=== PATIENT | female | born 1950 | race African-American/Black ===

== ENCOUNTER 2016-12-27 17:34 | Emergency (ER) | payer MEDICARE, MEDICAID ==
--- NOTE | 2016-12-27 18:57 | ER Document Report ---
ED General - General Chief Complaint: Wound Infection Stated Complaint: RIGHT LEG BED SORE Mode of Arrival: Medic Information source: Relative Cannot obtain history due to: Dementia Notes: 66-year-old female who is bedbound presents with daughter and EMS for concerns of bedsore. Symptoms have been ongoing for months, but family states that it is getting worse Denies any fevers or chills TRAVEL OUTSIDE OF THE [place] IN LAST 30 DAYS: No - HPI Onset: Other Onset/Duration: Persistent, Worse Quality of pain: Achy Severity: Moderate Pain Level: Denies Associated symptoms: Other Exacerbated by: Denies Relieved by: Denies Similar symptoms previously: Yes Recently seen / treated by doctor: Yes - Related Data Allergies/Adverse Reactions: codeine [Codeine] Allergy (Intermediate, Verified 09/21/16 16:47) rash, itch latex [Latex] Allergy (Intermediate, Verified 09/21/16 16:47) Hives Penicillins Allergy (Intermediate, Verified 09/21/16 16:47) rash, itch losartan potassium [From Cozaar] Allergy (Unknown, Verified 09/21/16 16:47) Unknown reaction Past Medical History - Social History Smoking Status: Never Smoker Cigarette use (# per day): No Chew tobacco use (# tins/day): No Smoking Education Provided: No Family History: Reviewed & Not Pertinent, Hypertension - Past Medical History Cardiac Medical History: Reports: Hx Congestive Heart Failure, Hx Coronary Artery Disease, Hx Hypertension - meds x 8 years, Hx Pulmonary Embolism Denies: Hx Atrial Fibrillation, Hx Heart Attack, Hx Hypercholesterolemia, Hx Peripheral Vascular Disease, Hx Heart Murmur Pulmonary Medical History: Reports: Hx Bronchitis - x 2/year, Hx Sleep Apnea - sleep study done, CPAP use x25 days only then quit using Denies: Hx Asthma, Hx COPD, Hx Pneumonia, Hx Respiratory Failure, Hx Tuberculosis Neurological Medical History: Reports: Hx Cerebrovascular Accident - 2011,RT sided weakness completely resolved. Denies: Hx Seizures Endocrine Medical History: Reports: Hx Diabetes Mellitus Type 1, Hx Diabetes Mellitus Type 2. Denies: Hx Graves' Disease, Hx Hyperthyroidism, Hx Hypothyroidism Renal/ Medical History: Denies: Hx End Stage Renal Disease, Hx Kidney Stones, Hx Ovarian Cysts, Hx Peritoneal Dialysis, Hx Pelvic Inflammatory Disease Malignancy Medical History: Reports: Hx Cervical Cancer - 1975. Denies: Hx Breast Cancer, Hx Leukemia, Hx Lung Cancer, Hx Ovarian Cancer GI Medical History: Denies: Hx Crohn's Disease, Hx Gastroesophageal Reflux Disease, Hx Hepatitis, Hx Hiatal Hernia, Hx Irritable Bowel, Hx Liver Failure, Hx Ulcer Musculoskeltal Medical History: Reports Hx Arthritis, Denies Hx Fibromyalgia, Denies Hx Multiple Sclerosis, Denies Hx Muscular Dystrophy Psychiatric Medical History: Reports: Hx Depression, Hx Schizophrenia Denies: Hx Bipolar Disorder, Hx Dementia, Hx Post Traumatic Stress Disorder Traumatic Medical History: Denies: Hx Fractures Infectious Medical History: Denies: Hx Hepatitis, Hx HIV Past Surgical History: Reports: Hx Section - 1975, Hx Hysterectomy, Hx Orthopedic Surgery, Hx Tonsillectomy - as young adult. Denies: Hx Appendectomy , Hx Bowel Surgery, Hx Cholecystectomy, Hx Colostomy, Hx Coronary Artery Bypass Graft, Hx Gastric Bypass Surgery, Hx Herniorrhaphy, Hx Mastectomy, Hx Open Heart Surgery, Hx Pacemaker, Hx Tubal Ligation - Immunizations Hx Diphtheria, Pertussis, Tetanus Vaccination: Yes Review of Systems - Review of Systems Notes: REVIEW OF SYSTEMS: CONSTITUTIONAL : Denies fever, chills, or sweats. Denies recent illness. EENT: Denies eye, ear, throat, or mouth pain or symptoms. Denies nasal or sinus congestion or discharge. Denies throat, tongue, or mouth swelling or difficulty swallowing. CARDIOVASCULAR: Denies chest pain. Denies palpitations or racing or irregular heart beat. Denies ankle edema. RESPIRATORY: Denies cough, cold, or chest congestion. Denies shortness of breath, difficulty breathing, or wheezing. GASTROINTESTINAL: Denies abdominal pain or distention. Denies nausea, vomiting , or diarrhea. Denies blood in vomitus, stools, or per rectum. Denies black, tarry stools. Denies constipation. GENITOURINARY: Denies difficulty urinating, painful urination, burning, frequency, blood in urine, or discharge. FEMALE GENITOURINARY: Denies vaginal bleeding, heavy or abnormal periods, irregular periods. Denies vaginal discharge or odor. MUSCULOSKELETAL: Denies back or neck pain or stiffness. Denies joint pain or swelling. SKIN: Ulcer HEMATOLOGIC : Denies easy bruising or bleeding. LYMPHATIC: Denies swollen, enlarged glands. NEUROLOGICAL: Denies confusion or altered mental status. Denies passing out or loss of consciousness. Denies dizziness or lightheadedness. Denies headache. Denies weakness or paralysis or loss of use of either side. Denies problems with gait or speech. Denies sensory loss, numbness, or tingling. Denies seizures. PSYCHIATRIC: Denies anxiety or stress. Denies depression, suicidal ideation, or homicidal ideation. ALL OTHER SYSTEMS REVIEWED AND NEGATIVE. Dictation was performed using [employer] voice recognition software PHYSICAL EXAMINATION: GENERAL: Thin frail appears older than stated age HEAD: Atraumatic, normocephalic. EYES: Pupils equal round and reactive to light, extraocular movements intact, conjunctiva are normal. ENT: Nares patent, oropharynx clear without exudates. Moist mucous membranes. NECK: Normal range of motion, supple without lymphadenopathy LUNGS: Breath sounds clear to auscultation bilaterally and equal. No wheezes rales or rhonchi. HEART: Regular rate and rhythm without murmurs ABDOMEN: Soft, nontender, nondistended abdomen. No guarding, no rebound. No masses appreciated. Female : deferred Musculoskeletal: Normal range of motion, no pitting or edema. No cyanosis. NEUROLOGICAL: Patient moving her extremities and follows commands SKIN: There is a 3 x 4 cm sacral decubitus ulcer stage III, there is no bony involvement noted is a foul smell to Physical Exam - Vital signs Vitals: Pulse Resp BP Pulse Ox 92 16 100/62 97 12/27/16 20:25 12/27/16 20:25 12/27/16 20:25 12/27/16 20:25 Course - Re-evaluation Re-evalutation: 12/27/16 23:07 I had dressing placed, however this appears to be a chronic issue and will require wound care, I will have the family follow-up with wound care clinic Abdomen shows to them to return immediately if there is any signs of fevers or see note any bony involvement After performing a Medical Screening Examination, I estimate there is LOW risk for OPEN FRACTURE, COMPARTMENT SYNDROME, TENDON RUPTURE, ACUTE NEUROVASCULAR INJURY, or RETAINED FOREIGN BODY, thus I consider the discharge disposition reasonable. Also, there is no evidence or peritonitis, sepsis, or toxicity. The patient and I have discussed the diagnosis and risks, and we agree with discharging home with close follow-up with the understanding that symptoms and presentations can change. We also discussed returning to the Emergency Department immediately if new or worsening symptoms occur. We have discussed the symptoms which are most concerning (e.g., changing or worsening pain, fever , numbness, weakness, cool or painful digits) that necessitate immediate return. - Vital Signs Vital signs: Temp Pulse Resp BP Pulse Ox 92 16 100/62 97 12/27/16 20:25 12/27/16 20:25 12/27/16 20:25 12/27/16 20:25 Discharge - Discharge Clinical Impression: Decubitus ulcer Qualifiers: Pressure ulcer location: sacral region Pressure ulcer stage: stage 3 Qualified Code(s): L89.153 - Pressure ulcer of sacral region, stage 3 Diabetes Qualifiers: Diabetes mellitus type: type 2 Diabetes mellitus complication status: with unspecified complications Diabetes mellitus terminal operations supervisor insulin use: unspecified terminal operations supervisor insulin use status Qualified Code(s): E11.8 - Type 2 diabetes mellitus with unspecified complications Condition: Stable Disposition: HOME, SELF-CARE Additional Instructions: Return immediately if there is any fevers altered mental status Referrals: Wound Care [Provider Group] - Follow up tomorrow
[2016-12-27 20:26] VITALS: BP 100/62
== END 2016-12-27 20:26 | disposition home or self-care (01) ==
LOC: ER 17:34
DX: L89.153 Pressure ulcer of sacral region, stage 3 (principal); E11.8 Type 2 diabetes mellitus with unspecified complications; I25.10 Atherosclerotic heart disease of native coronary artery without angina pectoris; I10 Essential (primary) hypertension; Z86.711 Personal history of pulmonary embolism; Z86.73 Personal history of transient ischemic attack (TIA), and cerebral infarction without residual deficits; Z85.41 Personal history of malignant neoplasm of cervix uteri; Z91.040 Latex allergy status; Z88.5 Allergy status to narcotic agent; Z88.0 Allergy status to penicillin; Z88.8 Allergy status to other drugs, medicaments and biological substances
CPT/HCPCS: 99283

== ENCOUNTER 2016-12-31 06:31 | Inpatient (IN) | payer MEDICARE, MEDICAID ==
[2016-12-31 09:11] LABS: APPEARANCE,URINE SLIGHTLY-CLOUDY; BILIRUBIN,URINE NEGATIVE (NEGATIVE); GLUCOSE, URINE NEGATIVE (NEGATIVE); KETONES,URINE NEGATIVE (NEGATIVE); LEUKOCYTE ESTERASE,URINE NEGATIVE (NEGATIVE); NITRITE,URINE NEGATIVE (NEGATIVE); PROTEIN,URINE 30 mg/dL (NEGATIVE); URINE SPECIFIC GRAVITY 1.018
[2016-12-31 09:50] LABS: HEMATOCRIT 27.6 % (36.0-47.0); HEMOGLOBIN 9.4 g/dL (12.0-15.5); HGB HCT DIFFERENCE 0.6; MEAN CORPUSCULAR HEMOGLOBIN 32.1 pg (27.0-33.4); MEAN CORPUSCULAR HGB CONC 34.1 g/dL (32.0-36.0); MEAN CORPUSCULAR VOLUME 94 fl (80-97); RED BLOOD COUNT 2.93 10^6/uL (3.72-5.28); RED CELL DISTRIBUTION WIDTH 15.9 % (11.5-14.0); WHITE BLOOD COUNT 21.8 10^3/uL (4.0-10.5)
--- NOTE | 2016-12-31 09:51 | ER Document Report ---
ED General - General Chief Complaint: Nausea/Vomiting Stated Complaint: VOMITING Mode of Arrival: Medic Information source: Relative - daughter Notes: Patient presents to the emergency department via EMS for nausea and vomiting. Daughter reports she started vomiting once yesterday and 3 times today. Patient was recently placed on Cipro and Keflex by her primary care provider and daughter thinks that is what is TRAVEL OUTSIDE OF THE [place] IN LAST 30 DAYS: No - HPI Onset: Yesterday Onset/Duration: Persistent Quality of pain: Achy Associated symptoms: Nausea, Vomiting Exacerbated by: Denies Relieved by: Denies Similar symptoms previously: Yes Recently seen / treated by doctor: Yes - Related Data Allergies/Adverse Reactions: codeine [Codeine] Allergy (Intermediate, Verified 09/21/16 16:47) rash, itch latex [Latex] Allergy (Intermediate, Verified 09/21/16 16:47) Hives Penicillins Allergy (Intermediate, Verified 09/21/16 16:47) rash, itch losartan potassium [From Cozaar] Allergy (Unknown, Verified 09/21/16 16:47) Unknown reaction Home Medications: Current Home Medications Benztropine Mesylate [Cogentin 1 mg Tablet] 1 mg PO TID 12/31/16 [History] Cephalexin [Cephalexin 500 MG Capsule] 500 mg PO BID 12/31/16 [History] Ciprofloxacin HCl [Cipro 500 mg Tablet] 500 mg PO BID 12/31/16 [History] Escitalopram Oxalate [Lexapro] 20 mg PO DAILY 12/31/16 [History] Folic Acid [Folvite 1 mg Tablet] 1 mg PO DAILY 12/31/16 [History] Metoprolol Tartrate [Lopressor 25 mg Tablet] 25 mg PO Q12 12/31/16 [History] Mirtazapine [Remeron 15 mg Tablet] 7.5 mg PO QHS 12/31/16 [History] Potassium Chloride [Klor-Con] 20 meq PO DAILY 12/31/16 [History] Sitagliptin Phosphate [Januvia] 100 mg PO DAILY 12/31/16 [History] Ziprasidone HCl [Geodon] 80 mg PO Q12 12/31/16 [History] Past Medical History - General Information source: Relative - daughter - Social History Smoking Status: Unknown if Ever Smoked Cigarette use (# per day): No Frequency of alcohol use: None Drug Abuse: None Lives with: Family Family History: Reviewed & Not Pertinent, Hypertension Patient has suicidal ideation: No Patient has homicidal ideation: No - Past Medical History Cardiac Medical History: Reports: Hx Congestive Heart Failure, Hx Coronary Artery Disease, Hx Hypertension - meds x 8 years, Hx Pulmonary Embolism Denies: Hx Atrial Fibrillation, Hx Heart Attack, Hx Hypercholesterolemia, Hx Peripheral Vascular Disease, Hx Heart Murmur Pulmonary Medical History: Reports: Hx Bronchitis - x 2/year, Hx Sleep Apnea - sleep study done, CPAP use x25 days only then quit using Denies: Hx Asthma, Hx COPD, Hx Pneumonia, Hx Respiratory Failure, Hx Tuberculosis Neurological Medical History: Reports: Hx Cerebrovascular Accident - 2010,RT sided weakness completely resolved. Denies: Hx Seizures Endocrine Medical History: Reports: Hx Diabetes Mellitus Type 1, Hx Diabetes Mellitus Type 2. Denies: Hx Graves' Disease, Hx Hyperthyroidism, Hx Hypothyroidism Renal/ Medical History: Denies: Hx End Stage Renal Disease, Hx Kidney Stones, Hx Ovarian Cysts, Hx Peritoneal Dialysis, Hx Pelvic Inflammatory Disease Malignancy Medical History: Reports: Hx Cervical Cancer - 1975. Denies: Hx Breast Cancer, Hx Leukemia, Hx Lung Cancer, Hx Ovarian Cancer GI Medical History: Denies: Hx Crohn's Disease, Hx Gastroesophageal Reflux Disease, Hx Hepatitis, Hx Hiatal Hernia, Hx Irritable Bowel, Hx Liver Failure, Hx Ulcer Musculoskeltal Medical History: Reports Hx Arthritis, Denies Hx Fibromyalgia, Denies Hx Multiple Sclerosis, Denies Hx Muscular Dystrophy Psychiatric Medical History: Reports: Hx Depression, Hx Schizophrenia Denies: Hx Bipolar Disorder, Hx Dementia, Hx Post Traumatic Stress Disorder Traumatic Medical History: Denies: Hx Fractures Infectious Medical History: Denies: Hx Hepatitis, Hx HIV Past Surgical History: Reports: Hx Section - 1975, Hx Hysterectomy, Hx Orthopedic Surgery, Hx Tonsillectomy - as young adult. Denies: Hx Appendectomy , Hx Bowel Surgery, Hx Cholecystectomy, Hx Colostomy, Hx Coronary Artery Bypass Graft, Hx Gastric Bypass Surgery, Hx Herniorrhaphy, Hx Mastectomy, Hx Open Heart Surgery, Hx Pacemaker, Hx Tubal Ligation - Immunizations Hx Diphtheria, Pertussis, Tetanus Vaccination: Yes Review of Systems - Review of Systems Notes: Review HPI for review of systems., All other systems negative Physical Exam - Vital signs Vitals: Temp Pulse Resp BP Pulse Ox 97.9 F 93 16 142/93 H 94 12/31/16 07:00 12/31/16 07:00 12/31/16 07:00 12/31/16 07:00 12/31/16 07:00 - Notes Notes: PHYSICAL EXAMINATION: GENERAL: pale HEAD: Atraumatic, normocephalic. EYES: Pupils equal round and reactive to light, extraocular movements intact, sclera anicteric, conjunctiva are normal. ENT: nares patent, Moist mucous membranes. NECK: Normal range of motion, without lymphadenopathy LUNGS: CTAB and equal. No wheezes rales or rhonchi. HEART: ST ABDOMEN: Soft, no tenderness. No guarding, no rebound EXTREMITIES: c/o soreness, achy with movement to any extremity, L AKA, NEUROLOGICAL: Cranial nerves grossly intact. Normal sensory/motor exams. PSYCH: Normal mood, normal affect. answers okay to all questions, c/o pain with movement. daughter reports as normal for patient SKIN: Warm, Dry, stage IV decubitus to sacral area with drainage foul odor, with stage III to bilateral buttocks Course - Re-evaluation Re-evalutation: 12/31/16 11:30 Patient actively vomiting now I have consulted the attending provider Dr Hernandez per [facility] guidelines. Upon elevated white count, Lactic acid 5. Source of infection I believe is decubitus which is now draining and has foul odor. Contacted Dr. Juares for admission. IV fluids and antibiotics ordered. Patient does not have an IV nurses are now working on that. Fluids, antibx ordered. Daughter instructed on admission. - Vital Signs Vital signs: Temp Pulse Resp BP Pulse Ox 97.9 F 72 14 116/73 93 12/31/16 07:00 12/31/16 14:15 12/31/16 14:15 12/31/16 12:55 12/31/16 09:10 - Laboratory Result Diagrams: 12/31/16 09:25 12/31/16 09:00 Laboratory results interpreted by me: 12/31/16 12/31/16 12/31/16 08:27 09:00 09:00 WBC RBC Hgb Hct RDW Seg Neuts % (Manual) Lymphocytes % (Manual) Monocytes % (Manual) Abs Neuts (Manual) PT 17.1 H Sodium 136.9 L Carbon Dioxide 21 L BUN 55 H Creatinine 2.45 H Est GFR ( Amer) 24 L Est GFR (Non-Af Amer) 20 L Glucose 165 H Lactic Acid Total Bilirubin 1.7 H Alkaline Phosphatase 181 H Total Protein 5.9 L Albumin 2.1 L Urine Protein 30 H Urine Blood SMALL H Urine Urobilinogen 2.0 H 12/31/16 12/31/16 09:25 09:25 WBC 21.8 H RBC 2.93 L Hgb 9.4 L Hct 27.6 L RDW 15.9 H Seg Neuts % (Manual) 89 H Lymphocytes % (Manual) 5 L Monocytes % (Manual) 2 L Abs Neuts (Manual) 20.3 H PT Sodium Carbon Dioxide BUN Creatinine Est GFR ( Amer) Est GFR (Non-Af Amer) Glucose Lactic Acid 5.0 H Total Bilirubin Alkaline Phosphatase Total Protein Albumin Urine Protein Urine Blood Urine Urobilinogen Discharge - Discharge Clinical Impression: Acute kidney injury Nausea & vomiting Qualifiers: Vomiting type: unspecified Vomiting Intractability: unspecified Qualified Code( s): R11.2 - Nausea with vomiting, unspecified Sepsis Qualifiers: Sepsis type: sepsis due to unspecified organism Qualified Code(s): A41.9 - Sepsis, unspecified organism Decubitus ulcer Qualifiers: Pressure ulcer location: sacral region Pressure ulcer stage: stage 4 Qualified Code(s): L89.154 - Pressure ulcer of sacral region, stage 4 Condition: Serious Disposition: ADMITTED INPATIENT Admitting Provider: Juares Unit Admitted: Telemetry
[2016-12-31 10:05] LABS: PROTHROMBIN TIME 17.1 SEC (11.4-15.4)
[2016-12-31 10:12] LABS: ALANINE AMINOTRANSFERASE 36 U/L (9-52); ALBUMIN 2.1 g/dL (3.5-5.0); ALKALINE PHOSPHATASE 181 U/L (38-126); ANION GAP 16 (5-19); ASPARTATE AMINO TRANSFERASE 23 U/L (14-36); BILIRUBIN,TOTAL 1.7 mg/dL (0.2-1.3); BLOOD UREA NITROGEN 55 mg/dL (7-20); CALCIUM 8.7 mg/dL (8.4-10.2); CARBON DIOXIDE 21 mmol/L (22-30); CHLORIDE 100 mmol/L (98-107); CREATININE RESULT 2.45 mg/dL (0.52-1.25); GLUCOSE 165 mg/dL (75-110); POTASSIUM 4.2 mmol/L (3.6-5.0); SODIUM 136.9 mmol/L (137-145); TOTAL PROTEIN 5.9 g/dL (6.3-8.2)
[2016-12-31 10:36] LABS: BAND NEUTROPHILS % (MANUAL) 4 % (3-5); BASOPHILS % (MANUAL) 0 % (0-2); EOSINOPHILS % (MANUAL) 0 % (0-6); LYMPHOCYTES % (MANUAL) 5 % (13-45); TOTAL CELLS COUNTED 100
[2016-12-31 10:37] LABS: ANISOCYTOSIS SLIGHT; TOXIC GRANULATION SLIGHT; TOXIC VACUOLATION PRESENT
--- NOTE | 2016-12-31 11:26 | EKG REPORT ---
SEVERITY:- ABNORMAL ECG - SINUS TACHYCARDIA PAIRED VENTRICULAR PREMATURE COMPLEXES BORDERLINE RIGHT AXIS DEVIATION BORDERLINE R WAVE PROGRESSION, ANTERIOR LEADS : Confirmed by: Karley Perez 31-Dec-2016 11:25:56
[2016-12-31] MEDS ORDERED: NORMAL SALINE 1000 ML 1,000 ML IV ONE (11:32)
[2016-12-31] MEDS ORDERED: CEFTRIAXONE RTU 1 GM/D5W 50 ML IV ONE (11:35)
[2016-12-31] MEDS ORDERED: ONDANSETRON HCL INJ/PF 4 MG/2 ML SDV IV ONE (11:45)
[2016-12-31] MEDS ORDERED: ACETAMINOPHEN 325 MG TABLET PO PRN (11:47)
[2016-12-31] MEDS ORDERED: ONDANSETRON HCL INJ/PF 4 MG/2 ML SDV IV PRN (11:47)
[2016-12-31] MEDS ORDERED: VANCOMYCIN HCL INJ 1000 MG VIAL IV ONE (11:51)
[2016-12-31] MEDS ORDERED: METRONIDAZOLE 500 MG/NS RTU 100 ML IV ONE ×2 (11:51→13:00)
[2016-12-31] MEDS ORDERED: DEXTROSE 50%-WATER 25 GM/50 ML DISP.SYRIN IV PRN ×2 (11:53)
[2016-12-31] MEDS ORDERED: DEXTROSE 40% GEL 15 GM TUBE PO PRN ×2 (11:53)
[2016-12-31] MEDS ORDERED: INSULIN LISPRO 100 UNIT/ML 3 ML VIAL SUBCUT PRN (11:53)
[2016-12-31] MEDS ORDERED: CEFEPIME 1 GM/D5W RTU 50 ML IV SCH (12:00)
[2016-12-31] MEDS ORDERED: ENOXAPARIN SODIUM INJ 30 MG/0.3 ML DISP.SYRIN SUBCUT ONE (13:00)
--- NOTE | 2016-12-31 14:00 | PDOC H&P ---
History of Present Illness Admission Date/PCP: 12/31/16 12:30 BERNABE MORENO MD History of Present Illness: MAKEDA LÓPEZ is a 66 year old female Patient's came to the ER today with the complaint with nausea vomiting since last 24 hour per daughter and patient had a stage IV ulcer and patient is not feeling well since last couple of days. In the emergency department the patient was found septic the white count was 21, 000 and patient was given IV antibiotic admitting in the hospital for further evaluation and treatment. Past Medical History Cardiac Medical History: Reports: Congestive Heart Failure, Coronary Artery Disease, Hypertension - meds x 8 years, Pulmonary Embolism Denies: Atrial Fibrillation, Myocardial Infarction, Hyperlipidema, Peripheral Vascular Disease, Heart Murmur Pulmonary Medical History: Reports: Bronchitis - x 2/year, Sleep Apnea - sleep study done, CPAP use x25 days only then quit using Denies: Asthma, Chronic Obstructive Pulmonary Disease (COPD), Pneumonia, Respiratory Failure, Tuberculosis Pulmonary History Note: Pulmonary embolus Neurological Medical History: Denies: Seizures Endocrine Medical History: Reports: Diabetes Mellitus Type 1, Diabetes Mellitus Type 2 Denies: Hyperthyroidism, Hypothyroidism Renal/ Medical History: Denies: End Stage Renal Disease Malignancy Medical History: Reports: Cervical Cancer - 1975 Denies: Breast Cancer, Leukemia, Lung Cancer, Ovarian Cancer GI Medical History: Denies: Crohn's Disease, Gastroesophageal Reflux Disease, Hepatitis, Hiatal Hernia Musculoskeltal Medical History: Reports: Arthritis Denies: Fibromyalgia Psychiatric Medical History: Reports: Depression Denies: Bipolar Disorder, Dementia, Post Traumatic Stress Disorder Hematology: Reports: Anemia - with blood transfusion, 1975, pre-[facility]IRA Denies: Hemophilia, Sickle Cell Disease Infectious Medical History: Denies: HIV Past Surgical History Past Surgical History: Reports: Section - 1975, Hysterectomy, Orthopedic Surgery, Tonsillectomy - as young adult Denies: Amputation, Appendectomy, Cholecystectomy, Colostomy, Coronary Artery Bypass Graft, Gastric Bypass Surgery, Herniorrhaphy, Mastectomy, Pacemaker, Tubal Ligation Social History Lives with: Family Smoking Status: Unknown if Ever Smoked Frequency of Alcohol Use: None Hx Recreational Drug Use: No Drugs: None Hx Prescription Drug Abuse: No Family History Family History: Reviewed & Not Pertinent, Hypertension Parental Family History Reviewed: Yes Children Family History Reviewed: Yes Sibling(s) Family History Reviewed.: Yes Medication/Allergy Allergies/Adverse Reactions: codeine [Codeine] Allergy (Intermediate, Verified 09/21/16 16:47) rash, itch latex [Latex] Allergy (Intermediate, Verified 09/21/16 16:47) Hives Penicillins Allergy (Intermediate, Verified 09/21/16 16:47) rash, itch losartan potassium [From Cozaar] Allergy (Unknown, Verified 09/21/16 16:47) Unknown reaction Review of Systems Constitutional: PRESENT: anorexia, fatigue, weight loss Cardiovascular: ABSENT: as per HPI, chest pain, dyspnea on exertion, edema, orthropnea, palpitations, other Respiratory: ABSENT: as per HPI, cough, dyspnea, hemoptysis, sputum, other Gastrointestinal: PRESENT: nausea, vomiting Genitourinary: ABSENT: as per HPI, difficulty urinating, dysuria, hematuria, nocturia, other Neurological: PRESENT: weakness Psychiatric: PRESENT: anxiety Physical Exam Vital Signs: Temp Pulse Resp BP Pulse Ox 97.9 F 110 H 22 H 116/73 93 12/31/16 07:00 12/31/16 12:55 12/31/16 12:55 12/31/16 12:55 12/31/16 09:10 General appearance: PRESENT: no acute distress, thin, other Head exam: PRESENT: normocephalic Eye exam: PRESENT: PERRLA Mouth exam: PRESENT: neck supple Respiratory exam: PRESENT: clear to auscultation italo Cardiovascular exam: PRESENT: +S1, +S2 GI/Abdominal exam: PRESENT: normal bowel sounds, soft. ABSENT: tenderness Extremities exam: PRESENT: right AKA. ABSENT: pedal edema Musculoskeletal exam: PRESENT: deformity Neurological exam: PRESENT: alert, awake Psychiatric exam: PRESENT: anxious Results Impressions: Abdomen/Pelvis CT 12/31/16 11:58 IMPRESSION: 1. Persistent fluid collection in the right retroperitoneum this is been described previously as hematoma is not significantly changed since prior study. 2. Large sacral decubitus ulcer as described. Assessment & Plan - Diagnosis (1) Nausea & vomiting Qualifiers: Vomiting type: unspecified Vomiting Intractability: unspecified Qualified Code(s): R11.2 - Nausea with vomiting, unspecified Is this a current diagnosis for this admission?: YesPlan: Most likely from the p.o. antibiotic will start the patient on IV Zofran and IV fluid and ordered a CT scan of the abdomen and pelvis without contrast (2) Sepsis Qualifiers: Sepsis type: sepsis due to unspecified organism Qualified Code(s): A41.9 - Sepsis, unspecified organism Is this a current diagnosis for this admission?: YesPlan: Start IV antibioticWait for all blood cultures urine culture and also check the stool for the C. difficile significant history of C. difficile in the past (3) Failure to thrive Qualifiers: Failure to thrive age range: in adult Qualified Code(s): R62.7 - Adult failure to thrive Is this a current diagnosis for this admission?: YesPlan: From chronic illness (4) Anemia Qualifiers: Anemia type: unspecified type Qualified Code(s): D64.9 - Anemia, unspecified Is this a current diagnosis for this admission?: YesPlan: From chronic disease (5) Decubitus ulcer Qualifiers: Pressure ulcer location: sacral region Pressure ulcer stage: stage 4 Qualified Code(s): L89.154 - Pressure ulcer of sacral region, stage 4 Is this a current diagnosis for this admission?: YesPlan: Chronic from chronic debridement condition and failure to thrive with consult to general surgery for further evaluation (6) Dehydration Plan: Start IV fluid (7) Diabetes Qualifiers: Diabetes mellitus type: type 2 Diabetes mellitus complication status: with unspecified complications Diabetes mellitus buttermaker continuous churn insulin use: unspecified buttermaker continuous churn insulin use status Qualified Code(s): E11.8 - Type 2 diabetes mellitus with unspecified complications; Z79.4 - jail (current) use of insulin Is this a current diagnosis for this admission?: YesPlan: Continues to OMS sliding scale (8) Acute renal failure Qualifiers: Acute renal failure type: unspecified Qualified Code(s): N17.9 - Acute kidney failure, unspecified Is this a current diagnosis for this admission?: YesPlan: From the dehydration and a possible sepsis start IV fluid - Time Time Spent: 30 to 50 Minutes Medications reviewed and adjusted accordingly: Yes Anticipated discharge: Other - Inpatient Certification Medical Necessity: Failure to Improve With Outpatient Therapy, Need For IV Fluids, Need for IV Antibiotics Post Hospital Care: D/C Consulting Psychologist Documentation - Plan Summary Plan Summary: Since condition is overall very poor and prognosis is very poor to discuss with her daughter on the bedside and patient is currently is a no code the patient's continues to be input probably needs to go to the nursing care facility
[2016-12-31] MEDS: IPRATROPIUM/ALBUTEROL 0.5-2.5 MG/3 ML AMPUL NEB SCH ×2 (14:15→19:06)
[2016-12-31] MEDS: NORMAL SALINE 1000 ML 1,000 ML IV PRN (14:37)
[2016-12-31] MEDS ORDERED: CEFEPIME 1 GM/D5W RTU 1 GM/50 ML RTUPB IV ONE ×2 (15:00)
[2016-12-31] MEDS: METRONIDAZOLE 500 MG/NS RTU 100 ML IV SCH (18:56)
[2016-12-31] MEDS: CEFEPIME 1 GM/D5W RTU 50 ML IV SCH (21:44)
[2016-12-31] MEDS: PANTOPRAZOLE SODIUM 40 MG VIAL IV SCH (21:44)
[2017-01-01] MEDS: METRONIDAZOLE 500 MG/NS RTU 100 ML IV SCH ×4 (01:28→17:10)
[2017-01-01 06:51] LABS: ABSOLUTE LYMPHOCYTES (AUTO) 1.3 10^3/uL (0.5-4.7); ABSOLUTE MONOCYTES (AUTO) 0.9 10^3/uL (0.1-1.4); ABSOLUTE NEUT (AUTO) 14.9 10^3/uL (1.7-8.2); BASOPHILS % (AUTO) 0.1 % (0-2); HEMATOCRIT 22.1 % (36.0-47.0); HGB HCT DIFFERENCE 0.7; LYMPHOCYTES % (AUTO) 7.4 % (13-45); MEAN CORPUSCULAR HEMOGLOBIN 32.3 pg (27.0-33.4); MEAN CORPUSCULAR HGB CONC 34.4 g/dL (32.0-36.0); MEAN CORPUSCULAR VOLUME 94 fl (80-97); MONOCYTES % (AUTO) 5.4 % (3-13); RED BLOOD COUNT 2.35 10^6/uL (3.72-5.28); RED CELL DISTRIBUTION WIDTH 15.4 % (11.5-14.0); SEGMENTED NEUTROPHILS % (AUTO) 87.1 % (42-78); WHITE BLOOD COUNT 17.1 10^3/uL (4.0-10.5)
[2017-01-01 06:54] LABS: HEMOGLOBIN 7.6 g/dL (12.0-15.5)
[2017-01-01 06:55] LABS: ALANINE AMINOTRANSFERASE 40 U/L (9-52); ALBUMIN 1.7 g/dL (3.5-5.0); ALKALINE PHOSPHATASE 140 U/L (38-126); ANION GAP 14 (5-19); ASPARTATE AMINO TRANSFERASE 23 U/L (14-36); BILIRUBIN,TOTAL 1.3 mg/dL (0.2-1.3); BLOOD UREA NITROGEN 60 mg/dL (7-20); CARBON DIOXIDE 17 mmol/L (22-30); CHLORIDE 108 mmol/L (98-107); CREATININE RESULT 2.76 mg/dL (0.52-1.25); GLUCOSE 81 mg/dL (75-110); POTASSIUM 4.2 mmol/L (3.6-5.0); SODIUM 139.4 mmol/L (137-145)
[2017-01-01] MEDS: IPRATROPIUM/ALBUTEROL 0.5-2.5 MG/3 ML AMPUL NEB SCH ×3 (08:02→20:11)
[2017-01-01] MEDS ORDERED: NORMAL SALINE 250 ML IV PRN ×2 (08:06)
--- NOTE | 2017-01-01 09:08 | PDOC CONSULTATION ---
Consultation Consult Date: 01/01/17 Attending physician:: FREDDY GAUTAM Consult reason:: Nausea and vomiting History of Present Illness Admission Date/PCP: 12/31/16 11:47 BERNABE MORENO MD History of Present Illness: Patient is admitted by Dr. Moreno. She was recently given some antibiotics. She is been treated for C. difficile. Following treatment should develop some nausea and vomiting. Stool studies are pending. She's been having nausea and vomiting ever since starting antibiotics. She does appear to have chronic anemia but no active bleeding. I spoke to Dr. Moreno. I suspect her symptoms are probably due to antibiotics. The plan at this point would be to see whether we can stop the antibiotics and see how she does. She does not need to have acute upper endoscopy done at this point in time. Her hemoglobin is stable. She is really not able to verbalize any other complaints. She is getting a breathing treatment as we speak. There is some mild shortness of breath. There does not appear to be any complaints of melena. She received IV antibiotics due to the sacral decubital ulcer. She might possibly have C. difficile. She also has been rehydrated due to dehydration. Past Medical History Cardiac Medical History: Reports: Congestive Heart Failure, Coronary Artery Disease, Hypertension - meds x 8 years, Pulmonary Embolism Denies: Atrial Fibrillation, Myocardial Infarction, Hyperlipidema, Peripheral Vascular Disease, Heart Murmur Pulmonary Medical History: Reports: Bronchitis - x 2/year, Sleep Apnea - sleep study done, CPAP use x25 days only then quit using Denies: Asthma, Chronic Obstructive Pulmonary Disease (COPD), Pneumonia, Respiratory Failure, Tuberculosis Neurological Medical History: Denies: Seizures Endocrine Medical History: Reports: Diabetes Mellitus Type 1, Diabetes Mellitus Type 2 Denies: Hyperthyroidism, Hypothyroidism Renal/ Medical History: Denies: End Stage Renal Disease Malignancy Medical History: Reports: Cervical Cancer - 1975 Denies: Breast Cancer, Leukemia, Lung Cancer, Ovarian Cancer GI Medical History: Denies: Crohn's Disease, Gastroesophageal Reflux Disease, Hepatitis, Hiatal Hernia Musculoskeltal Medical History: Reports: Arthritis Denies: Fibromyalgia Psychiatric Medical History: Reports: Depression Denies: Bipolar Disorder, Dementia, Post Traumatic Stress Disorder Hematology: Reports: Anemia - with blood transfusion, 1975, pre-[place] Denies: Hemophilia, Sickle Cell Disease Infectious Medical History: Denies: HIV Past Surgical History Past Surgical History: Reports: Section - 1975, Hysterectomy, Orthopedic Surgery, Tonsillectomy - as young adult Denies: Amputation, Appendectomy, Cholecystectomy, Colostomy, Coronary Artery Bypass Graft, Gastric Bypass Surgery, Herniorrhaphy, Mastectomy, Pacemaker, Tubal Ligation Social History Lives with: Family Smoking Status: Never Smoker Frequency of Alcohol Use: None Hx Recreational Drug Use: No Drugs: None Hx Prescription Drug Abuse: No Family History Family History: Reviewed & Not Pertinent, Hypertension Parental Family History Reviewed: Yes Children Family History Reviewed: Unknown Sibling(s) Family History Reviewed.: Unknown Medication/Allergy Home Medications: Benztropine Mesylate [Cogentin 1 mg Tablet] 1 mg PO TID 12/31/16 Cephalexin [Cephalexin 500 MG Capsule] 500 mg PO BID 12/31/16 Ciprofloxacin HCl [Cipro 500 mg Tablet] 500 mg PO BID 12/31/16 Escitalopram Oxalate [Lexapro] 20 mg PO DAILY 12/31/16 Folic Acid [Folvite 1 mg Tablet] 1 mg PO DAILY 12/31/16 Metoprolol Tartrate [Lopressor 25 mg Tablet] 25 mg PO Q12 12/31/16 Mirtazapine [Remeron 15 mg Tablet] 7.5 mg PO QHS 12/31/16 Potassium Chloride [Klor-Con] 20 meq PO DAILY 12/31/16 Sitagliptin Phosphate [Januvia] 100 mg PO DAILY 12/31/16 Ziprasidone HCl [Geodon] 80 mg PO Q12 12/31/16 Allergies/Adverse Reactions: codeine [Codeine] Allergy (Intermediate, Verified 09/21/16 16:47) rash, itch latex [Latex] Allergy (Intermediate, Verified 09/21/16 16:47) Hives Penicillins Allergy (Intermediate, Verified 09/21/16 16:47) rash, itch losartan potassium [From Cozaar] Allergy (Unknown, Verified 09/21/16 16:47) Unknown reaction Review of Systems Constitutional: PRESENT: weakness. ABSENT: fever(s), headache(s), night sweats Eyes: ABSENT: visual disturbances Ears: ABSENT: hearing changes Nose, Mouth, and Throat: ABSENT: mouth pain Cardiovascular: PRESENT: dyspnea on exertion. ABSENT: palpitations Respiratory: PRESENT: dyspnea. ABSENT: hemoptysis Gastrointestinal: PRESENT: nausea, vomiting. ABSENT: coffee ground emesis, diarrhea, hematemesis, melena Genitourinary: ABSENT: dysuria, hematuria Neurological: ABSENT: focal weakness, paresthesias, syncope, tremor(s), vertigo Endocrine: ABSENT: polydipsia, polyphagia, polyuria Hematologic/Lymphatic: ABSENT: easy bruising Physical Exam Vital Signs: Temp Pulse Resp BP Pulse Ox 98.0 F 73 16 84/39 L 92 01/01/17 07:28 01/01/17 08:00 01/01/17 08:00 01/01/17 07:28 01/01/17 08:00 Intake & Output 12/31/16 01/01/17 01/02/17 06:59 06:59 06:59 Intake Total 600 Output Total 600 Balance 0 Weight 48.2 kg General appearance: PRESENT: cooperative Head exam: PRESENT: atraumatic, normocephalic Eye exam: PRESENT: EOMI, PERRLA. ABSENT: nystagmus, periorbital swelling, scleral icterus Throat exam: ABSENT: tonsillar exudate Neck exam: ABSENT: meningismus, tenderness, thyromegaly Respiratory exam: PRESENT: decreased breath sounds, symmetrical, tachypnea. ABSENT: chest wall tenderness, wheezes Cardiovascular exam: PRESENT: RRR, +S1, +S2. ABSENT: rubs GI/Abdominal exam: PRESENT: normal bowel sounds, soft. ABSENT: distended, rebound, rigid, tenderness Extremities exam: ABSENT: joint swelling Neurological exam: PRESENT: alert, awake, oriented to person, oriented to place , CN II-XII grossly intact Psychiatric exam: PRESENT: appropriate affect Skin exam: PRESENT: normal color. ABSENT: mottled, pallor, petechiae, urticaria , vesicles Results Laboratory Results: 01/01/17 06:10 01/01/17 06:10 12/31/16 01/01/17 01/01/17 14:51 06:10 06:10 WBC 17.1 H RBC 2.35 L Hgb 7.6 L Hct 22.1 L MCV 94 MCH 32.3 MCHC 34.4 RDW 15.4 H Plt Count 172 Seg Neutrophils % 87.1 H Lymphocytes % 7.4 L Monocytes % 5.4 Eosinophils % 0.0 Basophils % 0.1 Absolute Neutrophils 14.9 H Absolute Lymphocytes 1.3 Absolute Monocytes 0.9 Absolute Eosinophils 0.0 Absolute Basophils 0.0 Sodium 139.4 Potassium 4.2 Chloride 108 H Carbon Dioxide 17 L Anion Gap 14 BUN 60 H Creatinine 2.76 H Est GFR ( Amer) 21 L Est GFR (Non-Af Amer) 17 L Glucose 81 Lactic Acid 5.3 H Calcium 8.0 L Total Bilirubin 1.3 AST 23 ALT 40 Alkaline Phosphatase 140 H Total Protein 5.0 L Albumin 1.7 L Impressions: Abdomen/Pelvis CT 12/31/16 11:58 IMPRESSION: 1. Persistent fluid collection in the right retroperitoneum this is been described previously as hematoma is not significantly changed since prior study. 2. Large sacral decubitus ulcer as described. Assessment & Plan - Diagnosis (1) Nausea & vomiting Qualifiers: Vomiting type: unspecified Vomiting Intractability: unspecified Qualified Code(s): R11.2 - Nausea with vomiting, unspecified Is this a current diagnosis for this admission?: YesPlan: Could be due to antibiotic use. We'll get results back and discontinue any antibiotics that are unnecessary then go ahead and see how she does if her nausea and vomiting does get worse she may need to have upper endoscopy. Also if there is any bleeding she'll need upper endoscopy. In the meanwhile start PPI and antiemetics. The case was discussed with Dr. Moreno. (2) Acute blood loss anemia Plan: Chronic anemia. Does not appear to be due to extreme blood loss. Multifactorial reasons. Some of her anemia might be due to her renal insufficiency. We'll follow Perhaps upper endoscopy early next week if nausea vomiting does not resolve and/ or if any bleeding Continue to watch H&H Transfuse as necessary (3) Failure to thrive Qualifiers: Failure to thrive age range: in adult Qualified Code(s): R62.7 - Adult failure to thrive Is this a current diagnosis for this admission?: YesPlan: This is a chronic issue we'll continue to follow. (4) Dehydration Plan: Patient is getting rehydrated this should improve her nausea and vomiting. - Time Time Spent: 50 to 70 Minutes
[2017-01-01] MEDS: ENOXAPARIN SODIUM INJ 30 MG/0.3 ML DISP.SYRIN SUBCUT SCH (09:13)
[2017-01-01] MEDS: CEFEPIME 1 GM/D5W RTU 50 ML IV SCH ×2 (09:13→22:59)
[2017-01-01] MEDS: PANTOPRAZOLE SODIUM 40 MG VIAL IV SCH ×2 (09:13→22:59)
--- NOTE | 2017-01-01 09:55 | PDOC PROGRESS REPORT ---
Subjective Progress Note for:: 01/01/17 Subjective:: Patient is doing fair patients denied any chest pain no shortness of the breath and no abdominal pain. C. difficile is positive. Since seen by Dr. Gagnon and discussed with the family also. Patient's hemoglobin was running low is likely from dilutional effect and a chronic disease. No sign of any acute blood loss. No fever overnight patient's white count is also improvingPatient is a no code as per discussed with the daughter who has a power of insurance defense attorney Physical Exam Vital Signs: Temp Pulse Resp BP Pulse Ox 98.0 F 73 16 84/39 L 92 01/01/17 07:28 01/01/17 08:00 01/01/17 08:00 01/01/17 07:28 01/01/17 08:00 Intake & Output 12/31/16 01/01/17 01/02/17 06:59 06:59 06:59 Intake Total 600 Output Total 600 Balance 0 Weight 48.2 kg General appearance: PRESENT: no acute distress Head exam: PRESENT: normocephalic Eye exam: PRESENT: PERRLA Mouth exam: PRESENT: neck supple Respiratory exam: PRESENT: clear to auscultation italo Cardiovascular exam: PRESENT: +S1, +S2 GI/Abdominal exam: PRESENT: normal bowel sounds, soft. ABSENT: tenderness Extremities exam: ABSENT: pedal edema Additional comments: Stage IV decubitus ulcers with some draining Neurological exam: PRESENT: alert, awake Psychiatric exam: PRESENT: anxious Results Laboratory Results: 01/01/17 06:10 01/01/17 06:10 12/31/16 01/01/17 01/01/17 14:51 06:10 06:10 WBC 17.1 H RBC 2.35 L Hgb 7.6 L Hct 22.1 L MCV 94 MCH 32.3 MCHC 34.4 RDW 15.4 H Plt Count 172 Seg Neutrophils % 87.1 H Lymphocytes % 7.4 L Monocytes % 5.4 Eosinophils % 0.0 Basophils % 0.1 Absolute Neutrophils 14.9 H Absolute Lymphocytes 1.3 Absolute Monocytes 0.9 Absolute Eosinophils 0.0 Absolute Basophils 0.0 Sodium 139.4 Potassium 4.2 Chloride 108 H Carbon Dioxide 17 L Anion Gap 14 BUN 60 H Creatinine 2.76 H Est GFR ( Amer) 21 L Est GFR (Non-Af Amer) 17 L Glucose 81 Lactic Acid 5.3 H Calcium 8.0 L Total Bilirubin 1.3 AST 23 ALT 40 Alkaline Phosphatase 140 H Total Protein 5.0 L Albumin 1.7 L Blood Type Antibody Screen 01/01/17 08:46 WBC RBC Hgb Hct MCV MCH MCHC RDW Plt Count Seg Neutrophils % Lymphocytes % Monocytes % Eosinophils % Basophils % Absolute Neutrophils Absolute Lymphocytes Absolute Monocytes Absolute Eosinophils Absolute Basophils Sodium Potassium Chloride Carbon Dioxide Anion Gap BUN Creatinine Est GFR ( Amer) Est GFR (Non-Af Amer) Glucose Lactic Acid Calcium Total Bilirubin AST ALT Alkaline Phosphatase Total Protein Albumin Blood Type Cancelled Antibody Screen Cancelled Impressions: Abdomen/Pelvis CT 12/31/16 11:58 IMPRESSION: 1. Persistent fluid collection in the right retroperitoneum this is been described previously as hematoma is not significantly changed since prior study. 2. Large sacral decubitus ulcer as described. Assessment & Plan - Diagnosis (1) Nausea & vomiting Qualifiers: Vomiting type: unspecified Vomiting Intractability: unspecified Qualified Code(s): R11.2 - Nausea with vomiting, unspecified Is this a current diagnosis for this admission?: YesPlan: Is also improving most likely a from the medication (2) Sepsis Qualifiers: Sepsis type: sepsis due to unspecified organism Qualified Code(s): A41.9 - Sepsis, unspecified organism Is this a current diagnosis for this admission?: YesPlan: From possible wound infections with the C. difficile will wait for the all cultures continues to IV cefepime and IV Flagyl once all cultures negative may be a consider stop the IV cefepime due to the C. difficile (3) Failure to thrive Qualifiers: Failure to thrive age range: in adult Qualified Code(s): R62.7 - Adult failure to thrive Is this a current diagnosis for this admission?: YesPlan: From chronic illness (4) Anemia Qualifiers: Anemia type: unspecified type Qualified Code(s): D64.9 - Anemia, unspecified Is this a current diagnosis for this admission?: YesPlan: Transfusion of 1 unit of the blood in the setting of C. difficile and chronic blood blood loss and chronic disease (5) Decubitus ulcer Qualifiers: Pressure ulcer location: sacral region Pressure ulcer stage: stage 4 Qualified Code(s): L89.154 - Pressure ulcer of sacral region, stage 4 Is this a current diagnosis for this admission?: YesPlan: Continues to dressing change and follow-up with the general surgery (6) Dehydration Plan: Continuous IV fluid (7) Diabetes Qualifiers: Diabetes mellitus type: type 2 Diabetes mellitus complication status: with unspecified complications Diabetes mellitus terminal operator insulin use: unspecified terminal operator insulin use status Qualified Code(s): E11.8 - Type 2 diabetes mellitus with unspecified complications; Z79.4 - FDC (current) use of insulin Is this a current diagnosis for this admission?: YesPlan: Continues to OMS sliding scale (8) Acute renal failure Qualifiers: Acute renal failure type: unspecified Qualified Code(s): N17.9 - Acute kidney failure, unspecified Is this a current diagnosis for this admission?: YesPlan: From the dehydration and possible sepsis may be underlying GI bleed continues to IV fluid patient's discussed with the Dr. Gagnon and continues to monitor at this point before doing any procedures - Time Time Spent with patient: 15-24 minutes Medications reviewed and adjusted accordingly: Yes Anticipated discharge: Other - Inpatient Certification Medical Necessity: Failure to Improve With Outpatient Therapy, Need For IV Fluids, Need for IV Antibiotics Post Hospital Care: D/C Tubing Machine Operator Documentation - Patient is getting better I think continues the patient's or IV fluid and IV antibiotics once all cultures come back negative may be a DC the cefepime and continues IV Flagyl. Patient's still have a very poor prognosis patient is currently on a no code
[2017-01-01] MEDS ORDERED: FUROSEMIDE INJ/PF 20 MG/2 ML SDV IV ONE (15:30)
[2017-01-01 16:21] LABS: HEMOGLOBIN 9.1 g/dL (12.0-15.5); HGB HCT DIFFERENCE 0.3; MEAN CORPUSCULAR HGB CONC 33.6 g/dL (32.0-36.0); MEAN CORPUSCULAR VOLUME 92 fl (80-97); RED BLOOD COUNT 2.93 10^6/uL (3.72-5.28); WHITE BLOOD COUNT 19.6 10^3/uL (4.0-10.5)
[2017-01-01] MEDS: NORMAL SALINE 1000 ML 1,000 ML IV PRN (23:00)
--- NOTE | 2017-01-02 00:25 | PDOC CONSULTATION ---
History of Present Illness Admission Date/PCP: 12/31/16 11:47 BERNABE MORENO MD History of Present Illness: Late entry. Patient was seen on the morning of 01/01/2017. Lacy Chávez is a frail appearing debilitated 66-year-old female. She has advanced dementia and is unable to provide any history. The history is from the medical record. The patient was admitted with nausea vomiting a stage IV ulcer and general worsening of her condition. At some point she was treated with antibiotics and had diarrhea since then. Her C. difficile test is positive. She is now being treated with IV Flagyl. The patient has a sacral decubitus ulcer. Surgery is consulted for that reason. Past Medical History Cardiac Medical History: Reports: Congestive Heart Failure, Coronary Artery Disease, Hypertension - meds x 8 years, Pulmonary Embolism Pulmonary Medical History: Reports: Bronchitis - x 2/year, Sleep Apnea - sleep study done, CPAP use x25 days only then quit using Endocrine Medical History: Reports: Diabetes Mellitus Type 2 Renal/ Medical History: Denies: End Stage Renal Disease Malignancy Medical History: Reports: Cervical Cancer - 1975 Musculoskeltal Medical History: Reports: Arthritis Psychiatric Medical History: Reports: Depression Hematology: Reports: Anemia - with blood transfusion, 1975, pre-[place] Infectious Medical History: Reports: Clostridium Difficile Past Surgical History Past Surgical History: Reports: Section - 1975, Hysterectomy, Orthopedic Surgery, Tonsillectomy - as young adult Social History Information Source: [facility] Records Lives with: Family Smoking Status: Never Smoker Frequency of Alcohol Use: None Hx Recreational Drug Use: No Drugs: None Hx Prescription Drug Abuse: No Family History Family History: Hypertension Parental Family History Reviewed: No Children Family History Reviewed: No Sibling(s) Family History Reviewed.: No Medication/Allergy Home Medications: Benztropine Mesylate [Cogentin 1 mg Tablet] 1 mg PO TID 12/31/16 Cephalexin [Cephalexin 500 MG Capsule] 500 mg PO BID 12/31/16 Ciprofloxacin HCl [Cipro 500 mg Tablet] 500 mg PO BID 12/31/16 Escitalopram Oxalate [Lexapro] 20 mg PO DAILY 12/31/16 Folic Acid [Folvite 1 mg Tablet] 1 mg PO DAILY 12/31/16 Metoprolol Tartrate [Lopressor 25 mg Tablet] 25 mg PO Q12 12/31/16 Mirtazapine [Remeron 15 mg Tablet] 7.5 mg PO QHS 12/31/16 Potassium Chloride [Klor-Con] 20 meq PO DAILY 12/31/16 Sitagliptin Phosphate [Januvia] 100 mg PO DAILY 12/31/16 Ziprasidone HCl [Geodon] 80 mg PO Q12 12/31/16 Allergies/Adverse Reactions: codeine [Codeine] Allergy (Intermediate, Verified 09/21/16 16:47) rash, itch latex [Latex] Allergy (Intermediate, Verified 09/21/16 16:47) Hives Penicillins Allergy (Intermediate, Verified 09/21/16 16:47) rash, itch losartan potassium [From Cozaar] Allergy (Unknown, Verified 09/21/16 16:47) Unknown reaction Review of Systems ROS unobtainable: Due to mental status Physical Exam Vital Signs: Temp Pulse Resp BP Pulse Ox 97.6 F 98 14 99/59 L 100 01/01/17 20:09 01/01/17 20:10 01/01/17 20:10 01/01/17 20:09 01/01/17 20:09 Intake & Output 12/31/16 01/01/17 01/02/17 06:59 06:59 06:59 Intake Total 600 2337 Output Total 600 75 Balance 0 2262 Weight 48.2 kg General appearance: PRESENT: disheveled, thin, other - Frail-appearing Eye exam: PRESENT: other - Her eyes do track with whomever speaking to her. Mouth exam: PRESENT: tongue midline Teeth exam: PRESENT: poor dentation Respiratory exam: PRESENT: other - She does seem to cooperate and be able to provide one deep breath but then does not cooperate after that. Respiratory effort is poor but they are clear bilaterally Cardiovascular exam: PRESENT: RRR - Difficult to auscultate, seems regular GI/Abdominal exam: PRESENT: soft, other - Excess skinfolds suggesting weight loss. ABSENT: tenderness Rectal exam: PRESENT: other - The patient has small amount of stool in her diaper. Just proximal this she has an extensive stage IV sacral decubitus ulcer with a central open area as well as undermining. The undermined tissue has a rim of necrotic tissue as well as additional viable tissue. The patient is rather stiff and difficult to maintain in position for proper exam. Extremities exam: ABSENT: tenderness Neurological exam: PRESENT: awake, aphasic. ABSENT: oriented to person, oriented to place, oriented to time, oriented to situation Skin exam: ABSENT: jaundice Results Laboratory Results: 01/01/17 16:02 01/01/17 06:10 01/01/17 01/01/17 01/01/17 06:10 06:10 08:46 WBC 17.1 H RBC 2.35 L Hgb 7.6 L Hct 22.1 L MCV 94 MCH 32.3 MCHC 34.4 RDW 15.4 H Plt Count 172 Seg Neutrophils % 87.1 H Lymphocytes % 7.4 L Monocytes % 5.4 Eosinophils % 0.0 Basophils % 0.1 Absolute Neutrophils 14.9 H Absolute Lymphocytes 1.3 Absolute Monocytes 0.9 Absolute Eosinophils 0.0 Absolute Basophils 0.0 Sodium 139.4 Potassium 4.2 Chloride 108 H Carbon Dioxide 17 L Anion Gap 14 BUN 60 H Creatinine 2.76 H Est GFR ( Amer) 21 L Est GFR (Non-Af Amer) 17 L Glucose 81 Calcium 8.0 L Total Bilirubin 1.3 AST 23 ALT 40 Alkaline Phosphatase 140 H Total Protein 5.0 L Albumin 1.7 L Blood Type Cancelled Antibody Screen Cancelled 01/01/17 01/01/17 09:42 16:02 WBC 19.6 H RBC 2.93 L Hgb 9.1 L Hct 27.0 L MCV 92 MCH 31.0 MCHC 33.6 RDW 16.0 H Plt Count 135 L Seg Neutrophils % Lymphocytes % Monocytes % Eosinophils % Basophils % Absolute Neutrophils Absolute Lymphocytes Absolute Monocytes Absolute Eosinophils Absolute Basophils Sodium Potassium Chloride Carbon Dioxide Anion Gap BUN Creatinine Est GFR ( Amer) Est GFR (Non-Af Amer) Glucose Calcium Total Bilirubin AST ALT Alkaline Phosphatase Total Protein Albumin Blood Type A POSITIVE Antibody Screen NEGATIVE Impressions: Abdomen/Pelvis CT 12/31/16 11:58 IMPRESSION: 1. Persistent fluid collection in the right retroperitoneum this is been described previously as hematoma is not significantly changed since prior study. 2. Large sacral decubitus ulcer as described. Assessment & Plan - Diagnosis (1) Sacral decubitus ulcer, stage IV Is this a current diagnosis for this admission?: YesPlan: Extensive stage IV sacral decubitus ulcer in a debilitated demented patient who is very frail appearing. Poor prognosis for healing. Recommend Offloading. Recommend specialty mattress. This wound could be debrided and cleansed at bedside, but the patient's dementia and rigidity when attempting exam or make this virtually impossible. Not sure if she is a surgical candidate considering she will probably need sedation and possibly intubation for proper debridement. I would like to talk to the family about goals. Asked the nurse to call me within the family returns to the floor. (2) Failure to thrive Qualifiers: Failure to thrive age range: in adult Qualified Code(s): R62.7 - Adult failure to thrive Is this a current diagnosis for this admission?: Yes (3) Altered mental status Qualifiers: Altered mental status type: disorientation Qualified Code(s): R41.0 - Disorientation, unspecified Is this a current diagnosis for this admission?: YesPlan: Per medicine. (4) Clostridium difficile colitis Is this a current diagnosis for this admission?: YesPlan: Per medicine. On Flagyl.
[2017-01-02] MEDS: METRONIDAZOLE 500 MG/NS RTU 100 ML IV SCH ×4 (00:38→21:01)
[2017-01-02] MEDS: GLUCAGON,HUMAN RECOMB 1 MG INJ IM PRN ×3 (07:07→15:01)
[2017-01-02] MEDS: IPRATROPIUM/ALBUTEROL 0.5-2.5 MG/3 ML AMPUL NEB SCH ×3 (08:01→19:48)
[2017-01-02 08:18] LABS: ABSOLUTE LYMPHOCYTES (AUTO) 1.5 10^3/uL (0.5-4.7); ABSOLUTE MONOCYTES (AUTO) 0.5 10^3/uL (0.1-1.4); BASOPHILS % (AUTO) 0.3 % (0-2); HEMOGLOBIN 9.2 g/dL (12.0-15.5); HGB HCT DIFFERENCE 0.6; LYMPHOCYTES % (AUTO) 10.2 % (13-45); MEAN CORPUSCULAR HEMOGLOBIN 31.4 pg (27.0-33.4); MEAN CORPUSCULAR VOLUME 92 fl (80-97); MONOCYTES % (AUTO) 3.1 % (3-13); RED BLOOD COUNT 2.93 10^6/uL (3.72-5.28); RED CELL DISTRIBUTION WIDTH 17.1 % (11.5-14.0); SEGMENTED NEUTROPHILS % (AUTO) 86.4 % (42-78)
[2017-01-02 08:21] LABS: ANION GAP 13 (5-19); BLOOD UREA NITROGEN 66 mg/dL (7-20); CALCIUM 8.2 mg/dL (8.4-10.2); CARBON DIOXIDE 16 mmol/L (22-30); CHLORIDE 115 mmol/L (98-107); CREATININE RESULT 2.74 mg/dL (0.52-1.25); GLUCOSE 76 mg/dL (75-110)
[2017-01-02] MEDS ORDERED: DEXTROSE 5%-NORMAL SALINE 1,000 ML IV PRN (09:45)
--- NOTE | 2017-01-02 16:55 | PDOC PROGRESS REPORT ---
Subjective Progress Note for:: 01/02/17 Subjective:: Patient is debilitated, family wants patient to be comfort care measures. She was admitted because of sepsis, history taking is a challenge, she has stage IV decubiti ulcer in the sacrum Physical Exam Vital Signs: Temp Pulse Resp BP Pulse Ox 97.8 F 64 18 148/122 H 74 L 01/02/17 12:09 01/02/17 14:10 01/02/17 14:10 01/02/17 12:09 01/02/17 12:09 Intake & Output 01/01/17 01/02/17 01/03/17 06:59 06:59 06:59 Intake Total 600 3437 Output Total 600 225 Balance 0 3212 Weight 48.2 kg 49.2 kg General appearance: PRESENT: mild distress Cardiovascular exam: PRESENT: +S1, +S2 Results Laboratory Results: 01/02/17 07:57 01/02/17 07:57 01/02/17 01/02/17 01/02/17 07:57 07:57 07:57 WBC 15.0 H RBC 2.93 L Hgb 9.2 L Hct 27.0 L MCV 92 MCH 31.4 MCHC 34.0 RDW 17.1 H Plt Count 135 L Seg Neutrophils % 86.4 H Lymphocytes % 10.2 L Monocytes % 3.1 Eosinophils % 0.0 Basophils % 0.3 Absolute Neutrophils 13.0 H Absolute Lymphocytes 1.5 Absolute Monocytes 0.5 Absolute Eosinophils 0.0 Absolute Basophils 0.0 Sodium 144.0 Potassium 4.0 Chloride 115 H Carbon Dioxide 16 L Anion Gap 13 BUN 66 H Creatinine 2.74 H Est GFR ( Amer) 21 L Est GFR (Non-Af Amer) 17 L Glucose 76 Lactic Acid 2.0 Calcium 8.2 L 12/31/16 12:46 Sacrum - Decubitis Ulcer Gram Stain - Final Impressions: Abdomen/Pelvis CT 12/31/16 11:58 IMPRESSION: 1. Persistent fluid collection in the right retroperitoneum this is been described previously as hematoma is not significantly changed since prior study. 2. Large sacral decubitus ulcer as described. Assessment & Plan - Diagnosis (1) Sepsis Qualifiers: Sepsis type: sepsis due to unspecified organism Qualified Code(s): A41.9 - Sepsis, unspecified organism Is this a current diagnosis for this admission?: YesPlan: The care will be transition to comfort care measures (2) Acute kidney injury Is this a current diagnosis for this admission?: Yes (3) Acute renal failure Qualifiers: Acute renal failure type: unspecified Qualified Code(s): N17.9 - Acute kidney failure, unspecified Is this a current diagnosis for this admission?: Yes (4) Decubitus ulcer Qualifiers: Pressure ulcer location: sacral region Pressure ulcer stage: stage 4 Qualified Code(s): L89.154 - Pressure ulcer of sacral region, stage 4 Is this a current diagnosis for this admission?: Yes (5) Nausea & vomiting Qualifiers: Vomiting type: unspecified Vomiting Intractability: unspecified Qualified Code(s): R11.2 - Nausea with vomiting, unspecified Is this a current diagnosis for this admission?: Yes (6) Sacral decubitus ulcer, stage IV Is this a current diagnosis for this admission?: Yes
[2017-01-02] MEDS: CEFEPIME 1 GM/D5W RTU 50 ML IV SCH ×2 (17:56→22:21)
[2017-01-02] MEDS: ENOXAPARIN SODIUM INJ 30 MG/0.3 ML DISP.SYRIN SUBCUT SCH (17:56)
[2017-01-02] MEDS: PANTOPRAZOLE SODIUM 40 MG VIAL IV SCH ×2 (17:56→22:21)
--- NOTE | 2017-01-02 21:13 | PDOC PROGRESS REPORT ---
Subjective Progress Note for:: 01/02/17 Subjective:: Subjective: Was consulted for stage IV decubitus ulcer and central venous access. Patient had lost IV and been stuck multiple times in unsuccessful efforts to gain access. Objective: The patient remains demented, aphasic, cachectic, debilitated and in discomfort and distress when any examination, assessment or intervention is attempted. I tried to place an external jugular vein IV as well multiple times and was unsuccessful, with significant distress and discomfort to the patient, with her seemingly completely unable to understand why. Assessment/plan: I then went to speak to the family about consents for debridement of ulcer as well as central line placement. I believe her to be a poor surgical candidate and recommended the debridement take place at the bedside. I expressed that I would try to limit this to frankly necrotic tissue , but estimate that it will cause the patient's significant distress, based on my attempts to examine her sacrum yesterday as well as my attempts to place an IV today. Additionally, the family warned me that the patient would need to be in restraints to prevent her removing her central line, which she did in August. The patient is debilitated, demented, cachectic and has been deteriorating consistently for 18 months with no reversal insight. I spoke with her daughter, her brother and several other family members at 2 separate times for a total of 100 minutes. The patient told her brother in August I'm tired and ready to . The daughter (and medical power of business attorney) reports telling her mother on multiple occasions, it's okay to let go. The daughter predicts continued demise and suffering of her mother and passing away in less than 2 months even if aggressive care were to be continued. I discussed options with the family including continued aggressive care with invasive procedures, continued care short of invasive procedures, and comfort cares. I also offered that we could accommodate any level of care day specified, but encouraged them to consider the goals of therapy and the wishes of and potential discomfort/suffering of Lacy. The daughter (and caregiver/medical power of business attorney), in consensus with all other family members present, wish the patient to be made "comfort cares only." I spoke with Dr. Womack to facilitate this. Surgery will sign off. Physical Exam Vital Signs: Temp Pulse Resp BP Pulse Ox 97.8 F 98 16 148/122 H 74 L 01/02/17 12:09 01/02/17 19:54 01/02/17 19:54 01/02/17 12:09 01/02/17 12:09 Intake & Output 01/01/17 01/02/17 01/03/17 06:59 06:59 06:59 Intake Total 600 3437 120 Output Total 600 225 100 Balance 0 3212 20 Weight 48.2 kg 49.2 kg Results Laboratory Results: 01/02/17 07:57 01/02/17 07:57 01/02/17 01/02/17 01/02/17 07:57 07:57 07:57 WBC 15.0 H RBC 2.93 L Hgb 9.2 L Hct 27.0 L MCV 92 MCH 31.4 MCHC 34.0 RDW 17.1 H Plt Count 135 L Seg Neutrophils % 86.4 H Lymphocytes % 10.2 L Monocytes % 3.1 Eosinophils % 0.0 Basophils % 0.3 Absolute Neutrophils 13.0 H Absolute Lymphocytes 1.5 Absolute Monocytes 0.5 Absolute Eosinophils 0.0 Absolute Basophils 0.0 Sodium 144.0 Potassium 4.0 Chloride 115 H Carbon Dioxide 16 L Anion Gap 13 BUN 66 H Creatinine 2.74 H Est GFR ( Amer) 21 L Est GFR (Non-Af Amer) 17 L Glucose 76 Lactic Acid 2.0 Calcium 8.2 L 12/31/16 12:46 Sacrum - Decubitis Ulcer Gram Stain - Final Impressions: Abdomen/Pelvis CT 12/31/16 11:58 IMPRESSION: 1. Persistent fluid collection in the right retroperitoneum this is been described previously as hematoma is not significantly changed since prior study. 2. Large sacral decubitus ulcer as described. Assessment & Plan - Diagnosis (1) Sacral decubitus ulcer, stage IV Is this a current diagnosis for this admission?: Yes (2) Failure to thrive Qualifiers: Failure to thrive age range: in adult Qualified Code(s): R62.7 - Adult failure to thrive Is this a current diagnosis for this admission?: Yes (3) Altered mental status Qualifiers: Altered mental status type: disorientation Qualified Code(s): R41.0 - Disorientation, unspecified Is this a current diagnosis for this admission?: Yes (4) Clostridium difficile colitis Is this a current diagnosis for this admission?: Yes
[2017-01-03] MEDS: METRONIDAZOLE 500 MG/NS RTU 100 ML IV SCH ×2 (01:16→05:39)
[2017-01-03 04:26] LABS: ABSOLUTE LYMPHOCYTES (AUTO) 1.5 10^3/uL (0.5-4.7); ABSOLUTE MONOCYTES (AUTO) 0.6 10^3/uL (0.1-1.4); ABSOLUTE NEUT (AUTO) 16.4 10^3/uL (1.7-8.2); BASOPHILS % (AUTO) 0.1 % (0-2); HEMATOCRIT 26.6 % (36.0-47.0); HEMOGLOBIN 9.1 g/dL (12.0-15.5); HGB HCT DIFFERENCE 0.7; LYMPHOCYTES % (AUTO) 8.1 % (13-45); MEAN CORPUSCULAR HEMOGLOBIN 31.3 pg (27.0-33.4); MEAN CORPUSCULAR HGB CONC 34.2 g/dL (32.0-36.0); MEAN CORPUSCULAR VOLUME 91 fl (80-97); MONOCYTES % (AUTO) 3.3 % (3-13); RED BLOOD COUNT 2.92 10^6/uL (3.72-5.28); RED CELL DISTRIBUTION WIDTH 17.2 % (11.5-14.0); SEGMENTED NEUTROPHILS % (AUTO) 88.5 % (42-78); WHITE BLOOD COUNT 18.5 10^3/uL (4.0-10.5)
[2017-01-03 04:42] LABS: ANION GAP 12 (5-19); BLOOD UREA NITROGEN 69 mg/dL (7-20); CALCIUM 8.1 mg/dL (8.4-10.2); CARBON DIOXIDE 18 mmol/L (22-30); CHLORIDE 116 mmol/L (98-107); CREATININE RESULT 2.65 mg/dL (0.52-1.25); GLUCOSE 48 mg/dL (75-110); POTASSIUM 3.4 mmol/L (3.6-5.0); SODIUM 145.9 mmol/L (137-145)
[2017-01-03] MEDS: IPRATROPIUM/ALBUTEROL 0.5-2.5 MG/3 ML AMPUL NEB SCH (09:15)
[2017-01-03] MEDS: MORPHINE SULFATE 10 MG/ML INJ INJ PRN (13:01)
--- NOTE | 2017-01-03 16:07 | PDOC PROGRESS REPORT ---
Subjective Progress Note for:: 01/03/17 Subjective:: Patient has been transitioned to comfort care measures. On antibiotics for sacral decubital ulcer as well as C.Diff. however having nausea and vomiting. not able to take oral medications. surgery has also seen patient patient does have advanced dementia Physical Exam Vital Signs: Temp Pulse Resp BP Pulse Ox 97.8 F 100 18 148/122 H 98 01/02/17 12:09 01/03/17 09:15 01/03/17 09:15 01/02/17 12:09 01/03/17 09:15 Intake & Output 01/02/17 01/03/17 01/04/17 06:59 06:59 06:59 Intake Total 3437 120 Output Total 225 250 Balance 3212 -130 Weight 49.2 kg 49.442 kg General appearance: PRESENT: mild distress, thin Head exam: PRESENT: atraumatic Eye exam: ABSENT: nystagmus, periorbital swelling Neck exam: ABSENT: thyromegaly, tracheal deviation Respiratory exam: PRESENT: crackles Cardiovascular exam: PRESENT: RRR, +S1, +S2 GI/Abdominal exam: PRESENT: diminished bowel sounds. ABSENT: Hodges's sign, rebound, rigid Extremities exam: ABSENT: clubbing Neurological exam: PRESENT: altered Skin exam: ABSENT: mottled, pallor, petechiae, rash Results Laboratory Results: 01/03/17 03:39 01/03/17 03:39 01/03/17 01/03/17 03:39 03:39 WBC 18.5 H RBC 2.92 L Hgb 9.1 L Hct 26.6 L MCV 91 MCH 31.3 MCHC 34.2 RDW 17.2 H Plt Count 108 L Seg Neutrophils % 88.5 H Lymphocytes % 8.1 L Monocytes % 3.3 Eosinophils % 0.0 Basophils % 0.1 Absolute Neutrophils 16.4 H Absolute Lymphocytes 1.5 Absolute Monocytes 0.6 Absolute Eosinophils 0.0 Absolute Basophils 0.0 Sodium 145.9 H Potassium 3.4 L Chloride 116 H Carbon Dioxide 18 L Anion Gap 12 BUN 69 H Creatinine 2.65 H Est GFR ( Amer) 22 L Est GFR (Non-Af Amer) 18 L Glucose 48 L Calcium 8.1 L 12/31/16 12:46 Sacrum - Decubitis Ulcer Gram Stain - Final Impressions: Abdomen/Pelvis CT 12/31/16 11:58 IMPRESSION: 1. Persistent fluid collection in the right retroperitoneum this is been described previously as hematoma is not significantly changed since prior study. 2. Large sacral decubitus ulcer as described. Assessment & Plan - Diagnosis (1) Nausea & vomiting Qualifiers: Vomiting type: unspecified Vomiting Intractability: unspecified Qualified Code(s): R11.2 - Nausea with vomiting, unspecified Is this a current diagnosis for this admission?: YesPlan: likely due to antibiotic use does not require any urgent EGD also now non aggressive , comfort care measures (2) Acute blood loss anemia Plan: multifactorial , no immediate bleeding noted (3) Failure to thrive Qualifiers: Failure to thrive age range: in adult Qualified Code(s): R62.7 - Adult failure to thrive Is this a current diagnosis for this admission?: YesPlan: poor overall nutrition and anorexia (5) Colitis due to Clostridium difficile Plan: likely contributing to sepsis and overall poor condition also has issues with sacral decubital ulcer and surgery will have a problem with addressing the issue if more aggressive care is desired, then OG tube with po flagyl likely will be more efficacious however with current status, that would be an invasive procedure and likely will not be well tolerated.
--- NOTE | 2017-01-03 17:10 | PDOC PROGRESS REPORT ---
Subjective Progress Note for:: 01/03/17 Subjective:: Patient with advanced dementia. Her care was transition to comfort care measures, yesterday aacording to family wishes Physical Exam Vital Signs: Temp Pulse Resp BP Pulse Ox 97.8 F 100 18 148/122 H 98 01/02/17 12:09 01/03/17 09:15 01/03/17 09:15 01/02/17 12:09 01/03/17 09:15 Intake & Output 01/02/17 01/03/17 01/04/17 06:59 06:59 06:59 Intake Total 3437 120 Output Total 225 250 Balance 3212 -130 Weight 49.2 kg 49.442 kg Results Laboratory Results: 01/03/17 03:39 01/03/17 03:39 01/03/17 01/03/17 03:39 03:39 WBC 18.5 H RBC 2.92 L Hgb 9.1 L Hct 26.6 L MCV 91 MCH 31.3 MCHC 34.2 RDW 17.2 H Plt Count 108 L Seg Neutrophils % 88.5 H Lymphocytes % 8.1 L Monocytes % 3.3 Eosinophils % 0.0 Basophils % 0.1 Absolute Neutrophils 16.4 H Absolute Lymphocytes 1.5 Absolute Monocytes 0.6 Absolute Eosinophils 0.0 Absolute Basophils 0.0 Sodium 145.9 H Potassium 3.4 L Chloride 116 H Carbon Dioxide 18 L Anion Gap 12 BUN 69 H Creatinine 2.65 H Est GFR ( Amer) 22 L Est GFR (Non-Af Amer) 18 L Glucose 48 L Calcium 8.1 L 12/31/16 12:46 Sacrum - Decubitis Ulcer Gram Stain - Final Impressions: Abdomen/Pelvis CT 12/31/16 11:58 IMPRESSION: 1. Persistent fluid collection in the right retroperitoneum this is been described previously as hematoma is not significantly changed since prior study. 2. Large sacral decubitus ulcer as described. Assessment & Plan - Diagnosis (1) Sepsis Qualifiers: Sepsis type: sepsis due to unspecified organism Qualified Code(s): A41.9 - Sepsis, unspecified organism Is this a current diagnosis for this admission?: Yes (2) Acute kidney injury Is this a current diagnosis for this admission?: Yes (3) Acute renal failure Qualifiers: Acute renal failure type: unspecified Qualified Code(s): N17.9 - Acute kidney failure, unspecified Is this a current diagnosis for this admission?: Yes (4) Decubitus ulcer Qualifiers: Pressure ulcer location: sacral region Pressure ulcer stage: stage 4 Qualified Code(s): L89.154 - Pressure ulcer of sacral region, stage 4 Is this a current diagnosis for this admission?: Yes (5) Nausea & vomiting Qualifiers: Vomiting type: unspecified Vomiting Intractability: unspecified Qualified Code(s): R11.2 - Nausea with vomiting, unspecified Is this a current diagnosis for this admission?: Yes (6) Sacral decubitus ulcer, stage IV Is this a current diagnosis for this admission?: Yes
[2017-01-04] MEDS: MORPHINE SULFATE 10 MG/ML INJ INJ PRN ×2 (10:00→15:49)
--- NOTE | 2017-01-04 19:23 | PROGRESS NOTE E ---
Progress Note NAME: MAKEDA LÓPEZ : 1950 AGE: 66Y DATE: 01/04/2017 ROOM: 527 SUBJECTIVE: Patient is doing fair. Patient was made comfort care per the daughter who is the [id number]. OBJECTIVE: GENERAL: Patient is currently lying in the bed, very cachectic, alert, awake, in no acute distress. VITAL SIGNS: Stable. HEAD AND NECK: Normocephalic. PERRLA. LUNGS: No wheezing, no rales. HEART: S1, S2 are present. ABDOMEN: Soft. Bowel sounds present. EXTREMITIES: No edema. ASSESSMENT AND PLAN: 1. *------*. 2. SEPSIS. 3. STAGE IV DECUBITUS ULCER. 4. DEMENTIA. 5. HYPERTENSION. 6. C. DIFFICILE COLITIS. PLAN: At this point, very extensive discussion with the daughter regarding the patient's clinical condition with the patient progressively getting more worse since last Wednesday, and now patient has a significant stage IV ulcer. Patient unable to move, worsening dementia symptoms and worsening failure to thrive. The daughter decided to put the patient on comfort care. We will consult hospice. Agree about that and hospice consulted at this point. DICTATING PHYSICIAN: BERNABE MORENO M.D. [id number] MARLONY#: [id number] ID: [id number] JOB#: [id number] ACCT: [id number] cc: >
--- NOTE | 2017-01-05 08:20 | PDOC DISCHARGE SUMMARY ---
General - Admit/Disc Date/PCP Admission Date/Primary Care Provider: 12/31/16 11:47 BERNABE MORENO MD Discharge Date: 01/05/17 - Discharge Diagnosis (1) Nausea & vomiting Is this a current diagnosis for this admission?: YesSummary: resolved (2) Sepsis Is this a current diagnosis for this admission?: YesSummary: Stable (3) Failure to thrive Is this a current diagnosis for this admission?: YesSummary: Due to failure to thrive with the multiple comorbidity (4) Anemia Is this a current diagnosis for this admission?: YesSummary: stable (5) Decubitus ulcer Is this a current diagnosis for this admission?: YesSummary: Due to to it failure to thrive (7) Diabetes Is this a current diagnosis for this admission?: YesSummary: Stable (8) Acute renal failure Is this a current diagnosis for this admission?: Yes (9) Dementia Is this a current diagnosis for this admission?: YesSummary: Due to the poor conditions with the metabolic and vascular (10) Clostridium difficile colitis Is this a current diagnosis for this admission?: Yes - Additional Information Home Medications: Benztropine Mesylate [Cogentin 1 mg Tablet] 1 mg PO TID 12/31/16 Cephalexin [Cephalexin 500 MG Capsule] 500 mg PO BID 12/31/16 Ciprofloxacin HCl [Cipro 500 mg Tablet] 500 mg PO BID 12/31/16 Escitalopram Oxalate [Lexapro] 20 mg PO DAILY 12/31/16 Folic Acid [Folvite 1 mg Tablet] 1 mg PO DAILY 12/31/16 Metoprolol Tartrate [Lopressor 25 mg Tablet] 25 mg PO Q12 12/31/16 Mirtazapine [Remeron 15 mg Tablet] 7.5 mg PO QHS 12/31/16 Potassium Chloride [Klor-Con] 20 meq PO DAILY 12/31/16 Sitagliptin Phosphate [Januvia] 100 mg PO DAILY 12/31/16 Ziprasidone HCl [Geodon] 80 mg PO Q12 12/31/16 History of Present Illness History of Present Illness: MAKEDA LÓPEZ is a 66 year old female Patient's came to the ER today with the complaint with nausea vomiting since last 24 hour per daughter and patient had a stage IV ulcer and patient is not feeling well since last couple of days. In the emergency department the patient was found septic the white count was 21, 000 and patient was given IV antibiotic admitting in the hospital for further evaluation and treatment. Hospital Course Hospital Course: This is a 66-year-old female with the multiple comorbidity and since last several years is getting worse and very poor appetite and failure to thrive and multiple infections and stage IV decubitus ulcers and worsening the dementia with the schizophrenia patient's came to the emergency department with the sepsis and C. difficile colitis and stage IV decubitus ulcers and acute renal failure due to the dehydration and failure to thrive and admitted and appropriately treated but patient's getting more worse and worse and patient's appetite is still very poor and patient's at this point with extensive discussions with the daughter who has a power of city attorney and family about to put the patient under comfort care and hospice care do not want to go for any aggressive management due to the not improving to conditions. Several years and getting worse. Patient's overall condition is more work and palpable that the patient started developing the more dementia I think patient is more appropriate for the hospice care with the poor prognosis. Physical Exam Vital Signs: Temp Pulse Resp BP Pulse Ox 97.8 F 100 18 148/122 H 98 01/02/17 12:09 01/03/17 09:15 01/03/17 09:15 01/02/17 12:09 01/03/17 09:15 Intake & Output 01/04/17 01/05/17 01/06/17 06:59 06:59 06:59 Intake Total 0 0 Output Total 300 150 Balance -300 -150 Weight 49.2 kg General appearance: PRESENT: no acute distress, other Eye exam: PRESENT: conjunctival injection, PERRLA Mouth exam: PRESENT: neck supple Respiratory exam: PRESENT: clear to auscultation italo Cardiovascular exam: PRESENT: +S1, +S2 GI/Abdominal exam: PRESENT: normal bowel sounds Extremities exam: PRESENT: right AKA Musculoskeletal exam: PRESENT: deformity Neurological exam: PRESENT: alert, altered Skin exam: PRESENT: dry Results Laboratory Results: 01/03/17 03:39 01/03/17 03:39 12/31/16 12:46 Sacrum - Decubitis Ulcer Gram Stain - Final 12/31/16 12:46 Sacrum - Decubitis Ulcer Wound Culture - Final Morganella Morganii Skin Chloe Vre (E.faecalis) Citrobacter Freundii Impressions: Abdomen/Pelvis CT 12/31/16 11:58 IMPRESSION: 1. Persistent fluid collection in the right retroperitoneum this is been described previously as hematoma is not significantly changed since prior study. 2. Large sacral decubitus ulcer as described. Plan Time Spent: Greater than 30 Minutes - Discussed with the daughter very extensively and plan to send the patient's with the hospice care due to the very poor prognosis due to the multiple comorbidity
[2017-01-05] MEDS: MORPHINE SULFATE 10 MG/ML INJ INJ PRN (08:42)
[2017-01-05 10:06] VITALS: BP 80/47
== END 2017-01-05 10:30 | disposition hospice, home (50) | DRG 871 ==
LOC: ER 06:31 → EH 11:47 → UNDOADMIN 12:30 → 5 16:00
PROVIDERS: ADMIT Family Medicine; ATTEND Family Medicine
PROC: 30233N1 Transfusion of Nonautologous Red Blood Cells into Peripheral Vein, Percutaneous Approach (ICD-10-PCS; principal; 2017-01-01)
DX: A41.9 Sepsis, unspecified organism (principal); L89.154 Pressure ulcer of sacral region, stage 4; N17.9 Acute kidney failure, unspecified; D62 Acute posthemorrhagic anemia; A04.7 Enterocolitis due to Clostridium difficile; R62.7 Adult failure to thrive; E86.0 Dehydration; Z66 Do not resuscitate; I25.10 Atherosclerotic heart disease of native coronary artery without angina pectoris; I10 Essential (primary) hypertension; G47.30 Sleep apnea, unspecified; E11.8 Type 2 diabetes mellitus with unspecified complications; M19.90 Unspecified osteoarthritis, unspecified site; F03.90 Unspecified dementia, unspecified severity, without behavioral disturbance, psychotic disturbance, mood disturbance, and anxiety; F20.9 Schizophrenia, unspecified; F32.9 Major depressive disorder, single episode, unspecified; Z51.5 Encounter for palliative care; Z79.4 Long term (current) use of insulin; Z79.899 Other long term (current) drug therapy; Z89.611 Acquired absence of right leg above knee; Z90.710 Acquired absence of both cervix and uterus; Z86.711 Personal history of pulmonary embolism; Z85.41 Personal history of malignant neoplasm of cervix uteri; Z88.0 Allergy status to penicillin; Z88.8 Allergy status to other drugs, medicaments and biological substances
CPT/HCPCS: 36415; 36430; 51701; 74176; 80048; 80053; 81001; 82962; 83605; 85025; 85027; 85610; 86850; 86900; 86901; 86920; 87040; 87070; 87075; 87077; 87086; 87186; 87205; 87493; 93005; 93010; 94640; 96374; 99285; J0692; J1610; J1650; J1940; J2270; J2405; J7030; J7620; P9016; S0164